=== PATIENT | female | born 1960 | race Caucasian/White ===

== ENCOUNTER → 2017-12-12 | Outpatient (CLI) | payer BC ==
[~2017-12-12] MED LIST: REGADENOSON 0.4 MG/5 ML DISP.SYRIN. IV ONE
--- NOTE | 2017-12-12 11:49 | PCVCIMAG ---
APPROVED REPORT Study performed: 12/12/2017 10:22:54 EXAM: Comprehensive 2D, Doppler, and color-flow Echocardiogram Patient Location: Echo lab Status: routine BSA: 1.72 HR: 57 bpmBP: 122/80 mmHg Rhythm: Bradycardia Other Information Study Quality: Adequate Indications Bicuspid aortic valve, thoracic aortic aneurysm 2D Dimensions IVSd: 9.43 (7-11mm)LVOT Diam: 21.05 (18-24mm) LVDd: 39.59 mm PWd: 8.70 (7-11mm)Ascending Ao: 41.97 (22-36mm) LVDs: 26.66 (25-40mm) Left Atrium: 34.05 (27-40mm) Aortic Root: 32.37 mm LV Single Plane 4CH: 64.03 % LV Single Plane 2CH: 62.15 % Biplane EF: 63.2 % Volumes Left Atrial Volume (Systole) Single Plane 4CH: 54.05 mLSingle Plane 2CH: 58.33 mL LA ESV Index: 35.00 mL/m2 Aortic Valve AoV Peak Ashok.: 2.56 m/s AO Peak Gr.: 26.12 mmHgLVOT Max P.46 mmHg AO Mean Gr.: 14.12 mmHgLVOT Mean P.35 mmHg AO V2 Mean: 1.78 m/sLVOT Max V: 1.06 m/s AO V2 VTI: 54.67 cmLVOT Mean V: 0.73 m/s BRYSON (VTI): 1.62 ir2FTAY V1 VTI: 25.40 cm BRYSON Vmax: 1.44 cm2 SV (LVOT): 88.34 mL Mitral Valve E/A Ratio: 1.6 MV Decel. Time: 210.68 ms MV E Max Ashok.: 0.85 m/s MV A Ashok.: 0.54 m/s IVRT: 107.27 ms Pulmonary Valve PV Peak Ashok.: 0.92 m/sPV Peak Gr.: 3.37 mmHg Pulmonary Vein P Vein S: 0.29 m/sP Vein A: 0.29 m/s P Vein D: 0.41 m/sP Vein A Dur.: 121.1 msec P Vein S/D Ratio: 0.71 Tricuspid Valve TR Peak Ashok.: 2.33 m/s TR Peak Gr.: 21.73 mmHg Left Ventricle The left ventricle is normal size. There is normal LV segmental wall motion. There is normal left ventricular wall thickness. Left ventricular systolic function is normal. The left ventricular ejection fraction is within the normal range. LVEF is 60-65%. The left ventricular diastolic function is normal. Right Ventricle The right ventricle is normal size. The right ventricular systolic function is normal. Atria The left atrium size is mildly dilated. The right atrium size is normal. Aortic Valve Aortic valve is bicuspid. Trace aortic regurgitation. There is mild valvular aortic stenosis. Calculated aortic valve area is 1.4 cm2 with maximum pressure gradient of 26 mmHg and mean pressure gradient of 14 mmHg. Mitral Valve The mitral valve is normal in structure. Mild mitral regurgitation. No evidence of mitral valve stenosis. Tricuspid Valve The tricuspid valve is normal in structure. Trace tricuspid regurgitation with PAP of 29 mmHg. Pulmonic Valve The pulmonary valve is normal in structure. Trace pulmonic regurgitation. Great Vessels The aortic root is normal in size. IVC is normal in size and collapses >50% with inspiration. Pericardium There is no pericardial effusion. There is no pleural effusion. <Conclusion> The left ventricle is normal size. LVEF is 60-65%. The left atrium size is mildly dilated. Aortic valve is bicuspid. Trace aortic regurgitation. There is mild valvular aortic stenosis. Calculated aortic valve area is 1.4 cm2 with maximum pressure gradient of 26 mmHg and mean pressure gradient of 14 mmHg. The mitral valve is normal in structure. Mild mitral regurgitation. The tricuspid valve is normal in structure. Trace tricuspid regurgitation with PAP of 29 mmHg. The pulmonary valve is normal in structure. Trace pulmonic regurgitation. There is no pericardial effusion. There is no pleural effusion.
--- NOTE | 2017-12-15 12:41 | PCVCIMAG ---
APPROVED REPORT Imaging Protocol: Rest Tc-99m/Stress Tc-99m 1 day Study performed: 12/12/2017 12:31:44 Indication: Chest pain, AAA, Bicuspid AV Patient Location: Out-Patient Stress Nurse: Barb Worley RN [place] Tech:Donna Vallebalbina [facility] Ht: 5 ft 6 in Wt: 145 lbs BSA: 1.74 m2 HR: 57 bpm BP: 122/80 mmHg BMI: 23.40 Rhythm: SB Medical History Medical History: HTN, Hyperlipidemia Medications: Atenolol, Adderal, Volsartan, Sertraline, Buspar, Omeprazole Allergies: No known drug allergies Cardiac Risk Factors: Age Pretest Chest Pain Characteristics: No chest pain Exercise History: Sedentary Physical Disabilities: Legs Meds Held (24 hrs): Atenolol Resting Data Rest SPECT myocardial perfusion imaging was performed in supine position 45 minutes following the intravenous injection of 10.5 mCi of Tc-99m Sestamibi. Time of rest injection: 1150 Administration Route: IV Administration Site: Right AC Pharmacologic Stress Pharmacologic stress test was performed by injecting Regadenoson 0.4 mg IV push over 10-15 seconds immediately followed by the intravenous injection of 34.4 mCi of Tc-99m Sestamibi. Time of stress injection: 1300 Date: 12/12/2017 Administration Route: IV Administration Site: Right AC Gated Stress SPECT was performed 45 minutes after stress injection. Stress Test Details Stress Test: Pharmacologic stress testing performed using 0.4 mg of regadenoson per 5 mL given IV over 10 seconds. Reason for pharmacologic stress test: physical limitation. HRMax Heart Rate (APMHR): 161 bpm Resting HR: 57 bpmTarget HR (85% APMHR): 136 bpm Max HR Achieved: 83 bpm % of APMHR: 51 Recovery HR: 63 bpm HR response to stress: Normal HR response to stress BP Resting BP: 122/80 mmHg Recovery BP: 147/76 mmHg ECG Resting ECG: SB Stress ECG: SR Recovery ECG: SR Clinical Reason for Termination: Completed protocol Stress Symptoms: None Exercise duration: 4 min 00 sec Exercise capacity: 1.6 METs Stress ECG Conclusion 1. Adequate response to intravenous Lexiscan 2. Inadequate heart rate for ECG diagnosis Study Data Post stress, the left ventricular ejection was 79%.. SSS: 5 SRS: 0 SDS: 0 TID = 1.09. Perfusion There is a small area of moderately reduced uptake in the apical segment of the picks and adjacent wall which is seen on the stress images as well as the resting images. This area thickens and moves normally and is most consistent with attenuation artifact. Wall Motion Normal left ventricular wall motion. Nuclear Conclusion ECG Findings: non-diagnostic Clinical Findings: negative for ischemia Nuclear Findings: negative for ischemia Exercise Capacity: not assessed Left Ventricular Function: normal 1. Low risk study <Conclusion> 1. Adequate response to intravenous Lexiscan 2. Inadequate heart rate for ECG diagnosis
== END | disposition home or self-care (01) ==
LOC: PCVCIMAG 13:00
PROVIDERS: ATTEND Internal Medicine
DX: I05.1 Rheumatic mitral insufficiency (principal); I71.2 Thoracic aortic aneurysm, without rupture; R07.9 Chest pain, unspecified; Q23.1 Congenital insufficiency of aortic valve
CPT/HCPCS: 78452; 93017; 93306; A9500; J2785